=== PATIENT | male | born 1965 | race Caucasian/White ===

== ENCOUNTER 2017-12-10 10:46 | Emergency (ER) | payer SELFPAY ==
[2017-12-10] MEDS ORDERED: Metoprolol Tartrate 50 MG Tab PO ONE (11:17)
[2017-12-10] MEDS: Sodium Chloride 0.9% 10 ML Syringe FLUSH PRN ×2 (11:26→11:55)
--- NOTE | 2017-12-10 11:29 | EDM.PDOC ---
ED HPI GENERAL MEDICAL PROBLEM - General Chief Complaint: Diabetic Complaint Stated Complaint: DIABETIC Time Seen by Provider: 12/10/17 11:15 Source of Information: Reports: Patient History Limitations: Reports: Other (no old records, not a great historian.) - History of Present Illness INITIAL COMMENTS - FREE TEXT/NARRATIVE: 52 yo male with a pHx of paroxysmal afib and who is on Xarelto and metoprolol once daily(not sure if he is on the tartrate or succinate) to treat this condition presents with some mild malaise and anorexia. He thought it might be a blood sugar problem, but does not have his meter with him and has not checked his BS yet today. He denies CP or SOB or diaphoresis. He cannot tell when he goes into afib so was unaware. Has been feeling like he does now for a few days. Is normally in NSR and only occasionally goes into Afib. [place]. Has a rv detailer who follows him. Thinks he missed a dose of his metoprolol on the weekend. Had an ECHO in the past that he thinks was normal. Had an ablation done for his his afib in the past. Onset: Unknown/Unsure Duration: Day(s):, Constant Location: Reports: Chest Quality: Reports: Other (no pain) Severity: Mild Improves with: Reports: None Worsens with: Reports: None Context: Reports: Other (PHx of afib and AODM) Associated Symptoms: Reports: Loss of Appetite, Malaise Treatments PAPER CLEANER: Reports: Other (see below) (none) Left Leg Pain Score (Numeric/FACES): 7 - Related Data Allergies Allergy/AdvReac Type Severity Reaction Status Date / Time No Known Allergies Allergy Verified 12/10/17 11:29 Home Meds: Home Meds Cyclobenzaprine [Flexeril] 10 mg PO BEDTIME 12/10/17 [History] Diltiazem HCl [Cardizem Cd] 300 mg PO QPM #30 cap.er.24h 12/10/17 [Rx] Insulin Aspart [NovoLOG] 5 unit SUBCNJ WITHMEALSANDBED 12/10/17 [History] Insulin Glarg,Human.Rec.Analog [Lantus] 15 unit SUBCNJ BEDTIME 12/10/17 [History ] Methocarbamol 750 mg PO ASDIRECTED PRN 12/10/17 [History] Metoprolol Succinate [Toprol XL] 25 mg PO DAILY 12/10/17 [History] Metoprolol Succinate [Toprol Xl] 100 mg PO DAILY 12/10/17 [History] Naproxen 500 mg PO BID 12/10/17 [History] Rivaroxaban [Xarelto] 20 mg PO QPM 12/10/17 [History] Simvastatin [Zocor] 20 mg PO BEDTIME 12/10/17 [History] metFORMIN [Glucophage XR] 2,000 mg PO WITHDINNER 12/10/17 [History] Social & Family History - Tobacco Use Smoking Status *Q: Never Smoker - Caffeine Use Caffeine Use: Reports: Soda - Recreational Drug Use Recreational Drug Use: No ED ROS GENERAL - Review of Systems Review Of Systems: See Below Constitutional: Reports: Malaise, Decreased Appetite HEENT: Reports: No Symptoms Respiratory: Reports: No Symptoms Cardiovascular: Reports: No Symptoms GI/Abdominal: Reports: No Symptoms : Reports: No Symptoms Skin: Reports: No Symptoms Neurological: Reports: No Symptoms ED EXAM GENERAL NO PERIP PULSE - Physical Exam Exam: See Below Exam Limited By: No Limitations General Appearance: Alert, WD/WN, No Apparent Distress Eye Exam: Bilateral Eye: Normal Inspection Ears: Normal External Exam, Normal Canal, Hearing Grossly Normal Nose: Normal Inspection, Normal Mucosa, No Blood Throat/Mouth: Normal Inspection, Normal Lips, Normal Oropharynx, Normal Voice, No Airway Compromise Head: Atraumatic, Normocephalic Neck: Normal Inspection, Supple, Non-Tender Respiratory/Chest: No Respiratory Distress, Lungs Clear, Normal Breath Sounds, No Accessory Muscle Use Cardiovascular: Tachycardia, Irregularly Irregular GI/Abdominal: Soft, Non-Tender Back Exam: Normal Inspection. No: CVA Tenderness (R), CVA Tenderness (L) Extremities: Normal Inspection, Normal Range of Motion, Non-Tender, No Pedal Edema Neurological: Alert, Oriented, CN II-XII Intact, Normal Cognition, No Motor/ Sensory Deficits Psychiatric: Normal Affect, Normal Mood Skin Exam: Warm, Dry, Intact, Normal Color, No Rash Lymphatic: No Adenopathy Course - Vital Signs Text/Narrative:: Minimal change in heart rate with metoprolol 50 mg po and metoprolol 5 mg IV LR 1000 ml IV x 2 for borderline low BP Diltiazem 25 mg IV did slow him down to the 90's, oral immediate release 60 mg po given. HR stayed in the low 90's at rest. Last Recorded V/S: Last Vital Signs Temp 35.4 C 12/10/17 11:04 Pulse 95 12/10/17 12:59 Resp 19 12/10/17 12:59 BP 83/50 L 12/10/17 12:59 Pulse Ox 98 12/10/17 12:59 - Orders/Labs/Meds Orders: Active Orders 24 hr Category Date Time Status Cardiac Monitoring [RC] .As Directed Care 12/10/17 11:18 Active Lactated Ringers [Ringers, Lactated] 1,000 ml Med 12/10/17 13:00 Active IV BOLUS Sodium Chloride 0.9% [Saline Flush] Med 12/10/17 11:18 Active 10 ml FLUSH ASDIRECTED PRN Saline Lock Insert [OM.PC] Routine Oth 12/10/17 11:18 Ordered Medication Orders Lactated Ringer's (Ringers, Lactated) 1,000 mls @ 1,000 mls/hr IV BOLUS DAWSON Last Admin: 12/10/17 12:58 Dose: 1,000 mls/hr Sodium Chloride (Saline Flush) 10 ml FLUSH ASDIRECTED PRN PRN Reason: Keep Vein Open Last Admin: 12/10/17 11:55 Dose: 10 ml Admin: 12/10/17 11:26 Dose: 10 ml Meds: Medications Generic Name Dose Route Start Last Admin Trade Name Freq PRN Reason Stop Dose Admin Lactated Ringer's 1,000 mls @ 1,000 mls/hr 12/10/17 13:00 12/10/17 12:58 Ringers, Lactated IV 1,000 mls/hr BOLUS DAWSON Administration Sodium Chloride 10 ml 12/10/17 11:18 12/10/17 11:55 Saline Flush FLUSH 10 ml ASDIRECTED PRN Administration Keep Vein Open Discontinued Medications Generic Name Dose Route Start Last Admin Trade Name Freq PRN Reason Stop Dose Admin Diltiazem HCl 25 mg 12/10/17 11:55 12/10/17 12:02 Diltiazem IVPUSH 12/10/17 11:56 25 mg ONETIME ONE Administration Diltiazem HCl 60 mg 12/10/17 12:12 12/10/17 12:26 Cardizem PO 12/10/17 12:13 60 mg ONETIME ONE Administration Lactated Ringer's 1,000 mls @ 1,000 mls/hr 12/10/17 11:56 12/10/17 12:00 Ringers, Lactated IV 12/10/17 12:55 1,000 mls/hr BOLUS ONE Administration Metoprolol Tartrate 50 mg 12/10/17 11:17 12/10/17 11:20 Lopressor PO 12/10/17 11:18 50 mg ONETIME ONE Administration Metoprolol Tartrate 5 mg 12/10/17 11:47 12/10/17 11:51 Lopressor IVPUSH 12/10/17 11:48 5 mg ONETIME ONE Administration Departure - Departure Time of Disposition: 14:01 Disposition: Home, Self-Care 01 Condition: Fair Clinical Impression: Atrial fibrillation with RVR - Discharge Information *PRESCRIPTION DRUG MONITORING PROGRAM REVIEWED*: Not Applicable *COPY OF PRESCRIPTION DRUG MONITORING REPORT IN PATIENT VERONICA: Not Applicable Prescriptions: Diltiazem HCl [Cardizem Cd] 300 mg PO QPM #30 cap.er.24h Referrals: PCP,None [Primary Care Provider] - Forms: ED Department Discharge Additional Instructions: Stop your metoprolol and substitute Cardizem CD 300 mg strength. Take one dose daily around supper time. Continue all your other medications as before. See your family doctor or rv detailer later this week if possible for recheck. Drink ample fluids today and tomorrow to keep your BP up. - My Orders Last 24 Hours: My Active Orders 12/10/17 11:18 Cardiac Monitoring [RC] .As Directed Sodium Chloride 0.9% [Saline Flush] 10 ml FLUSH ASDIRECTED PRN Saline Lock Insert [OM.PC] Routine 12/10/17 13:00 Lactated Ringers [Ringers, Lactated] 1,000 ml IV BOLUS - Assessment/Plan Last 24 Hours: My Active Orders 12/10/17 11:18 Cardiac Monitoring [RC] .As Directed Sodium Chloride 0.9% [Saline Flush] 10 ml FLUSH ASDIRECTED PRN Saline Lock Insert [OM.PC] Routine 12/10/17 13:00 Lactated Ringers [Ringers, Lactated] 1,000 ml IV BOLUS
[2017-12-10] MEDS ORDERED: Metoprolol Tartrate 5 MG/5 ML SDV IVPUSH ONE (11:47)
[2017-12-10] MEDS ORDERED: Diltiazem 25 MG/5 ML SDV IVPUSH ONE (11:55)
[2017-12-10] MEDS ORDERED: Lactated Ringers 1,000 ML IV ONE (11:56)
[2017-12-10] MEDS ORDERED: Diltiazem IR 30 MG Tab PO ONE (12:12)
[2017-12-10] MEDS ORDERED: Lactated Ringers 1,000 ML IV SCH (13:00)
== END 2017-12-10 14:15 | disposition home or self-care (01) ==
LOC: JP.ED 10:46
DX: I48.91 Unspecified atrial fibrillation (principal); Z79.01 Long term (current) use of anticoagulants; Z79.4 Long term (current) use of insulin; Z79.899 Other long term (current) drug therapy
CPT/HCPCS: 96361; 96374; 96375; 99284; A9270; J3490; J7050; J7120